=== PATIENT | female | born 1995 | race Caucasian/White ===

== ENCOUNTER 2017-04-06 19:39 | Emergency (ER) | payer MEDICAID ==
[2017-04-06 19:45] VITALS: BP 112/77
[2017-04-06 20:19] LABS: RAPID STREP SCREEN REAGENT QC YELLOW (YELLOW)
--- NOTE | 2017-04-06 20:37 | ED Physician Documentation ---
PD HPI URI - Stated complaint Stated Complaint: SORE THROAT - Chief complaint Chief Complaint: Heent - History obtained from History obtained from: Patient - History of Present Illness Timing - onset: How many days ago (3-4) Timing duration: Days (3-4) Timing details: Gradual onset Associated symptoms: Nasal congestion, Sore throat, Dry cough. No: Fever Contributing factors: Sick contact (coworker had strep throat and her boss wants her checked for strep and note to be able to work.) Similar symptoms before: Has not had sx before Recently seen: Not recently seen Review of Systems Constitutional: reports: Fever, Chills Ears: denies: Ear pain Nose: reports: Congestion Throat: reports: Sore throat Respiratory: reports: Cough GI: denies: Nausea, Vomiting, Diarrhea Skin: denies: Rash, Lesions PD PAST MEDICAL HISTORY - Past Medical History Past Medical History: No - Past Surgical History Past Surgical History: No - Present Medications Home Medications: Ambulatory Orders Medication Instructions Recorded Confirmed No Known Home Medications [No 04/06/17 04/06/17 Known Home Medications] - Allergies Allergies/Adverse Reactions: Allergies Allergy/AdvReac Type Severity Reaction Status Date / Time No Known Drug Allergies Allergy Verified 04/06/17 19:45 - Social History Does the pt smoke?: No Smoking Status: Never smoker Does the pt drink ETOH?: No Does the pt have substance abuse?: No - Immunizations Immunizations are current?: Yes - POLST Patient has POLST: No PD ED PE NORMAL - Vitals Vital signs reviewed: Yes - General General: Alert and oriented X 3, No acute distress, Well developed/nourished - HEENT HEENT: Ears normal, Pharynx benign (mild tonsillar redness with exudate. Minimal anterior adenopathy. ) - Neck Neck: Supple, no meningeal sign - Cardiac Cardiac: RRR, No murmur - Respiratory Respiratory: No respiratory distress, Clear bilaterally, Other - Abdomen Abdomen: Soft, Non tender - Derm Derm: Normal color, Warm and dry Results - Vitals Vitals: Oxygen O2 Source Room air - Labs Labs: Microbiology 04/06/17 20:00 Group A Strep Throat Culture - Final Throat MIXED OROPHARYNGEAL СВЕТЛАНА PRESENT. NO BETA STREP PRESENT IN CULTURE. Laboratory Tests 04/06/17 20:00 Group A Strep Rapid Negative PD MEDICAL DECISION MAKING - ED course Complexity details: reviewed results, considered differential (had been exposed to strep by coworkers and is now sick, but seems like URI. Rapied strep negative. ), d/w patient Departure - Departure Disposition: 01 Home, Self Care Clinical Impression: Strep throat exposure Upper respiratory infection Qualifiers: URI type: unspecified URI Qualified Code(s): J06.9 - Acute upper respiratory infection, unspecified Condition: Stable Record reviewed to determine appropriate education?: Yes Instructions: ED Upper Resp Infec No Abx Tx Follow-Up: Nancie Luis ARNP [Primary Care Provider] - Comments: Your strep test is negative. Presume this is a viral illness and drink lots of fluids, use Tylenol or ibuprofen if needed for fevers and pains. Likely will improve after 5 or 6 days. Forms: Activity restrictions Discharge Date/Time: 04/06/17 21:00
== END 2017-04-06 21:00 | disposition home or self-care (01) ==
LOC: ED 19:39
DX: J06.9 Acute upper respiratory infection, unspecified (principal); Z20.89 Contact with and (suspected) exposure to other communicable diseases
CPT/HCPCS: 87070; 87430; 99282; 99283

== ENCOUNTER 2017-04-24 08:00 | Outpatient (CLI) | payer MEDICAID | END 2017-04-24 08:01 | disposition home or self-care (01) | LOC: LAB.R 08:00 | PROVIDERS: ATTEND Registered Nurse | DX: Z30.430 Encounter for insertion of intrauterine contraceptive device (principal) | CPT/HCPCS: 87491; 87591 ==

== ENCOUNTER 2017-10-02 13:37 | Emergency (ER) | payer MEDICAID ==
[2017-10-02 13:56] VITALS: BP 117/71
--- NOTE | 2017-10-02 14:14 | ED Physician Documentation ---
PD HPI HEENT - Stated complaint Stated Complaint: R EAR PX - Chief complaint Chief Complaint: Heent - History obtained from History obtained from: Patient - History of Present Illness Timing - onset: Other (She was cleaning the right ear with a Q-tip about a month ago, since then she has had pain of the ear canal and decreased hearing. No fevers or other URI symptoms.) Review of Systems Constitutional: denies: Fever, Chills Ears: reports: Loss of hearing, Ear pain. denies: Drainage/discharge Nose: denies: Rhinorrhea / runny nose, Congestion Throat: denies: Sore throat PD PAST MEDICAL HISTORY - Past Medical History Past Medical History: No - Past Surgical History Past Surgical History: No - Present Medications Home Medications: Ambulatory Orders Medication Instructions Recorded Confirmed Neomycin/Polymyx/Hc Otic Drops 4 drops OT TID #1 bottle 10/02/17 [Cortisporin Ear Susp] - Allergies Allergies/Adverse Reactions: Allergies Allergy/AdvReac Type Severity Reaction Status Date / Time No Known Drug Allergies Allergy Verified 10/02/17 13:58 - Social History Does the pt smoke?: No Smoking Status: Never smoker Does the pt drink ETOH?: No Does the pt have substance abuse?: No - Immunizations Immunizations are current?: Yes - POLST Patient has POLST: No PD ED PE NORMAL - Vitals Vital signs reviewed: Yes - General General: Alert and oriented X 3, No acute distress - HEENT HEENT: Other (TMs are normal. There is no significant cerumen load on either side. She does have redness of the entrance of the ear canal on the right with a little bit of swelling.) - Neck Neck: Supple, no meningeal sign, No bony TTP - Neuro Neuro: Alert and oriented X 3, Normal speech - Psych Psych: Normal mood, Normal affect Results - Vitals Vitals: Vital Signs - 24 hr 10/02/17 13:55 Temperature 37.0 C Heart Rate 76 Respiratory 16 Rate Blood Pressure 117/71 O2 Saturation 98 Oxygen O2 Source Room air Departure - Departure Disposition: 01 Home, Self Care Clinical Impression: Right otitis externa Qualifiers: Otitis externa type: other infective Chronicity: acute Qualified Code(s): H60.391 - Other infective otitis externa, right ear Condition: Good Record reviewed to determine appropriate education?: Yes Instructions: ED Otitis Externa Prescriptions: Neomycin/Polymyx/Hc Otic Drops [Cortisporin Ear Susp] 4 drops OT TID #1 bottle Comments: Recheck with your family doctor in 1 week. Return if worse or if new symptoms develop.
== END 2017-10-02 14:23 | disposition home or self-care (01) ==
LOC: ED 13:37
DX: H60.391 Other infective otitis externa, right ear (principal)
CPT/HCPCS: 99283

== ENCOUNTER 2017-10-24 14:01 | Outpatient (CLI) | payer MEDICAID | END 2017-10-24 14:02 | disposition home or self-care (01) | LOC: LAB.R 14:01 | PROVIDERS: ATTEND Registered Nurse | DX: Z11.3 Encounter for screening for infections with a predominantly sexual mode of transmission (principal) | CPT/HCPCS: 87491; 87591 ==

== ENCOUNTER 2018-10-06 11:29 | Emergency (ER) | payer MEDICAID ==
[2018-10-06 12:14] VITALS: BP 117/75
--- NOTE | 2018-10-06 14:06 | ED Physician Documentation ---
History of Present Illness - Stated complaint Stated Complaint: GUZMÁN/CHEST PX,COUGH - Chief complaint Chief Complaint: General - Additonal information Additional information: 22-year-old female presents the emergency department for evaluation of body aches, fevers, chills, nasal congestion and generally not feeling well. Symptoms have been ongoing since last night. No reports of productive cough, wheezing or shortness of breath. No attempts at symptom management. No other associated symptoms. Positive for sick contacts Review of Systems Constitutional: reports: Fever, Chills, Myalgias, Fatigue Eyes: denies: Discharge Ears: denies: Ear pain Nose: reports: Rhinorrhea / runny nose, Congestion Throat: reports: Sore throat Cardiac: denies: Chest pain / pressure Respiratory: reports: Cough, Wheezing : denies: Dysuria Skin: denies: Rash Musculoskeletal: denies: Back pain Neurologic: denies: Generalized weakness PD PAST MEDICAL HISTORY - Past Surgical History Past Surgical History: No - Present Medications Home Medications: Ambulatory Orders Medication Instructions Recorded Confirmed Neomycin/Polymyx/Hc Otic Drops 4 drops OT TID #1 bottle 10/02/17 [Cortisporin Ear Susp] - Allergies Allergies/Adverse Reactions: Allergies Allergy/AdvReac Type Severity Reaction Status Date / Time No Known Drug Allergies Allergy Verified 10/06/18 12:14 - Social History Does the pt smoke?: No Smoking Status: Never smoker Does the pt drink ETOH?: No Does the pt have substance abuse?: No - Immunizations Immunizations are current?: Yes - POLST Patient has POLST: No PD ED PE NORMAL - General General: Alert and oriented X 3, No acute distress - HEENT HEENT: Atraumatic, PERRL, EOMI, Ears normal - Neck Neck: Supple, no meningeal sign - Cardiac Cardiac: RRR, Strong equal pulses - Respiratory Respiratory: No respiratory distress, Clear bilaterally - Derm Derm: Normal color - Extremities Extremities: No deformity - Neuro Neuro: Alert and oriented X 3, Normal speech - Psych Psych: Normal affect Results - Vitals Vitals: Vital Signs - 24 hr 10/06/18 12:10 Temperature 37 C Heart Rate 116 H Respiratory 16 Rate Blood Pressure 117/75 O2 Saturation 97 Oxygen O2 Source Room air - Labs Labs: Laboratory Tests 10/06/18 10/06/18 12:17 12:17 Influenza A (Rapid) Negative Influenza B (Rapid) Negative Group A Strep Rapid Negative PD MEDICAL DECISION MAKING - ED course ED course: Well-appearing individual, the patient's lungs are clear and has no evidence of respiratory distress. Presently the patient's symptoms appear to be of a viral etiology and the patient appears appropriate for discharge with ongoing outpatient management. I discussed warning signs and recommended returning to the emergency department immediately for any worsening or concerns Departure - Departure Disposition: 01 Home, Self Care Clinical Impression: URI (upper respiratory infection) Qualifiers: URI type: unspecified URI Qualified Code(s): J06.9 - Acute upper respiratory infection, unspecified Condition: Good Follow-Up: Samara Moreno ARNP [Primary Care Provider] - Within 1 week Comments: Please return to the emergency department for worsening symptoms or any concerns
== END 2018-10-06 14:39 | disposition home or self-care (01) ==
LOC: ED 11:29
DX: J06.9 Acute upper respiratory infection, unspecified (principal)
CPT/HCPCS: 87070; 87275; 87276; 87430; 99282; 99283

== ENCOUNTER 2019-01-28 08:00 | Outpatient (CLI) | payer MEDICAID | END 2019-01-28 08:01 | disposition home or self-care (01) | LOC: LAB.R 08:00 | PROVIDERS: ATTEND Obstetrics & Gynecology | DX: N39.0 Urinary tract infection, site not specified (principal) | CPT/HCPCS: 87086 ==

== ENCOUNTER 2019-05-25 08:00 | Outpatient (CLI) | payer SELFPAY ==
[2019-05-25 18:42] LABS: CALCIUM 9.4 mg/dL (8.5-10.3); CREATININE 0.5 mg/dL (0.4-1.0)
== END 2019-05-25 23:59 | disposition home or self-care (01) ==
LOC: LAB.N 08:00
PROVIDERS: ATTEND Nurse Practitioner Gerontology
DX: E87.1 Hypo-osmolality and hyponatremia (principal)
CPT/HCPCS: 36415; 80048